=== PATIENT | male | born 1995 | race Caucasian/White ===

== ENCOUNTER → 2018-09-11 09:36 | Outpatient (CLI) | payer BC, SELFPAY | PROVIDERS: PCP Family Medicine; Visit Provider Internal Medicine | DX: R00.2 Palpitations (principal); R07.9 Chest pain, unspecified | CPT/HCPCS: 93017; 93306 ==

== ENCOUNTER → 2018-09-29 12:01 | Outpatient (CLI) | payer BC, SELFPAY | PROVIDERS: PCP Family Medicine; Visit Provider Nurse Practitioner Family | DX: R00.2 Palpitations (principal); R07.9 Chest pain, unspecified | CPT/HCPCS: 93225; 93226 ==

== ENCOUNTER → 2018-10-09 06:49 | Outpatient (CLI) | payer BC, SELFPAY ==
--- NOTE | 2018-10-09 06:51 | CT_ITS ---
CT angio coronary artery INDICATION: Abnormal stress test, chest pain ITS.REASON: abnormal GXT ORDERING PHYSICIAN: José Luther MD PATIENT AGE: 23 years COMPARISON: None TECHNIQUE: Coronary artery calcium score is performed before the CT angiogram. Bradycardia was obtained with 50 mg by mouth metoprolol and 5 mg IV metoprolol. Patient also received 10 mg Valium by mouth for anxiety. Gated cardiac images are obtained following the intravenous administration of 70 mL's of Isovue 370. The patient tolerated the procedure well without evidence of immediate consultation. All CT scans at the facility use one or more dose reduction, viz: automated exposure control, ma/kV adjustment per patient size (including targeted exams where dose is matched to indication, i.e. head), or iterative reconstruction technique. FINDINGS: Coronary artery calcium score is 0. 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 A conus branch is also noted. No coronary artery stenosis evident. No evidence of myocardial bridging. There is codominance with septum supplied by both the PDA and the LAD. The pulmonary arteries are normal in caliber. No evidence of right ventricular strain. Normal heart size. IMPRESSION: Normal CT angiogram of the coronary arteries
[2018-10-09 08:35] VITALS: RESP 18
== END ==
PROVIDERS: PCP Family Medicine; Visit Provider Internal Medicine
DX: R00.2 Palpitations (principal); R07.9 Chest pain, unspecified
CPT/HCPCS: 75574; Q9967